=== PATIENT | female | born 1955 | race Caucasian/White ===

== ENCOUNTER 2017-04-17 15:06 | Emergency (ER) | payer OTHER ==
--- NOTE | 2017-04-17 15:41 | EDM.PDOC ---
ED HPI GENERAL MEDICAL PROBLEM - General Chief Complaint: General Stated Complaint: PASSING OUT Time Seen by Provider: 04/17/17 15:25 Source of Information: Reports: Patient, Family History Limitations: Reports: No Limitations - History of Present Illness INITIAL COMMENTS - FREE TEXT/NARRATIVE: 61-year-old female who has a history of chronic headaches, but is typically healthy was riding in the passenger seat of the car when she had a sudden onset of vertigo. She reached over and grabbed her because it was so intense. She also became nauseated and diaphoretic. It started to resolve but then she got an episode several minutes later. He brought her in to the hospital and she was hyperventilating, anxious, had paresthesias "all over" and felt unsteady walking and needed help. Other than a mild headache no other pain, no palpitations, no chest pain or abdominal pain. No recent trauma. No recent illnesses. She did just start on a "diet pill" within the last 1-2 weeks. She has not had lab or x-ray in "quite a while". She's also had some intermittent visual changes over the past several months, and also struggles with right TMJ. She's had an intermittent fullness in her left ear. Onset: Sudden (Within the last hour) Duration: Other (Still having some symptoms but improving) Severity: Moderate Associated Symptoms: Reports: Diaphoresis, Headaches, Malaise. 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 Denies: Fever, Chills HEENT: Reports: Other (See history of present illness) Respiratory: Denies: Shortness of Breath, Cough Cardiovascular: Denies: Chest Pain, Palpitations GI/Abdominal: Reports: Nausea. Denies: Abdominal Pain, Vomiting : Reports: No Symptoms Musculoskeletal: Reports: Other (Intermittent right TMJ symptoms) Skin: Reports: Pallor, Diaphoresis Neurological: Reports: Dizziness, Headache, Difficulty Walking Psychiatric: Reports: No Symptoms ED EXAM, GENERAL - Physical Exam Exam: See Below Exam Limited By: No Limitations General Appearance: Alert, No Apparent Distress, Anxious Eye Exam: Bilateral Eye: EOMI (I could not reproduce nystagmus), PERRL Ears: Normal TMs Head: Atraumatic Neck: Supple. No: Carotid Bruit Respiratory/Chest: No Respiratory Distress, Lungs Clear Cardiovascular: Regular Rate, Rhythm GI/Abdominal: Soft, Non-Tender Extremities: Normal Inspection. No: Pedal Edema Neurological: Alert, Oriented, No Motor/Sensory Deficits Psychiatric: Anxious, Other (Initially was hyperventilating but calmed down and markedly improved) Skin Exam: Warm, Dry Course - Vital Signs Last Recorded V/S: Last Vital Signs Temp 98.1 F 04/17/17 15:21 Pulse 95 04/17/17 15:21 Resp 20 04/17/17 15:21 BP 144/83 H 04/17/17 15:21 Pulse Ox 96 04/17/17 15:21 - Orders/Labs/Meds Orders: Active Orders 24 hr Category Date Time Status Head wo Cont [CT] Stat Exams 04/17/17 15:39 Taken Labs: Laboratory Tests 04/17/17 04/17/17 Range/Units 16:15 16:15 WBC 13.8 H (4.5-11.0) K/uL RBC 5.25 (3.30-5.50) M/uL Hgb 15.8 H (12.0-15.0) g/dL Hct 46.8 (36.0-48.0) % MCV 89 (80-98) fL MCH 30 (27-31) pg MCHC 34 (32-36) % Plt Count 413 H (150-400) K/uL Neut % (Auto) 75 H (36-66) % Lymph % (Auto) 19 L (24-44) % [place] % (Auto) 6 (2-6) % Eos % (Auto) 1 L (2-4) % Baso % (Auto) 0 (0-1) % Sodium 138 L (140-148) mmol/L Potassium 3.8 (3.6-5.2) mmol/L Chloride 103 (100-108) mmol/L Carbon Dioxide 23 (21-32) mmol/L Anion Gap 15.8 H (5.0-14.0) mmol/L BUN 11 (7-18) mg/dL Creatinine 0.9 (0.6-1.0) mg/dL Est Cr Clr Drug Dosing 51.92 mL/min Estimated GFR (MDRD) > 60 (>60) Glucose 131 H (74-106) mg/dL Calcium 9.5 (8.5-10.1) mg/dL Total Bilirubin 0.5 (0.2-1.0) mg/dL AST 20 (15-37) U/L ALT 30 (12-78) U/L Alkaline Phosphatase 133 H (46-116) U/L Total Protein 7.1 (6.4-8.2) g/dL Albumin 3.7 (3.4-5.0) g/dL Globulin 3.4 (2.3-3.5) g/dL Albumin/Globulin Ratio 1.1 L (1.2-2.2) - Re-Assessments/Exams Free Text/Narrative Re-Assessment/Exam: 04/17/17 16:10 Because of the intensity of the symptoms and the lack of nystagmus, a CT the head was obtained. We also marisa a CMP and CBC and continued observation. She was placed on cardiac monitoring and remained in a normal sinus rhythm throughout, she was slightly tachycardic initially but calmed down 04/17/17 16:[address] was completely normal. CBC and CMP were reassuring. Her symptoms almost completely resolved other than some slight visual disturbance which she will follow-up with optometry. Departure - Departure Time of Disposition: 17:22 Disposition: Home, Self-Care 01 Condition: Good Clinical Impression: Acute hyperventilation syndrome Acute vestibular neuritis Qualifiers: Laterality: unspecified laterality Qualified Code(s): H81.20 - Vestibular neuronitis, unspecified ear - Discharge Information Instructions: Hyperventilation Referrals: Deysi Weathers SPANISH LECTURER [Primary Care Provider] - Forms: ED Department Discharge Care Plan Goals: Increase activity as tolerated. Consider rechecking with optometry, [facility] in [place] may have an opening in the near future. Return in the next few days if symptoms are recurring or worsening. - My Orders Last 24 Hours: My Active Orders 04/17/17 15:39 Head wo Cont [CT] Stat - Assessment/Plan Last 24 Hours: My Active Orders 04/17/17 15:39 Head wo Cont [CT] Stat
== END 2017-04-17 17:22 | disposition home or self-care (01) ==
LOC: JP.ED 15:06
DX: H81.20 Vestibular neuronitis, unspecified ear (principal); F45.8 Other somatoform disorders; E78.00 Pure hypercholesterolemia, unspecified; Z79.899 Other long term (current) drug therapy; Z88.5 Allergy status to narcotic agent
CPT/HCPCS: 36415; 70450; 80053; 85025; 99284; 99284-25

== ENCOUNTER 2018-10-12 10:52 | Emergency (ER) | payer MEDICAID, OTHER ==
--- NOTE | 2018-10-12 11:48 | EDM.PDOC ---
ED HPI GENERAL MEDICAL PROBLEM - General Chief Complaint: Lower Extremity Injury/Pain Stated Complaint: BOTH YASMINE ARE SORE AND SWOLLEN Time Seen by Provider: 10/12/18 11:30 Source of Information: Reports: Patient, Old Records, RN History Limitations: Reports: No Limitations - History of Present Illness INITIAL COMMENTS - FREE TEXT/NARRATIVE: 63 yo female presents with some L knee pain and slight swelling since this past Tues. not associated with an injury. She has no hx of knee surgery. With rest the knee is slightly less swollen now than it was. She has not been to the clinic for this. It feels better if she walks with a locked L knee. 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) (none) Left Knee Pain Score (Numeric/FACES): 5 - Related Data Allergies Allergy/AdvReac Type Severity Reaction Status Date / Time codeine AdvReac Vomiting Verified 10/12/18 11:11 Home Meds: Home Meds Esomeprazole Magnesium [Nexium] 40 mg PO BEDTIME 04/17/17 [History] Dimenhydrinate [Dramamine] 50 mg PO DAILY PRN 10/12/18 [History] Montelukast [Singulair] 10 mg PO DAILY 10/12/18 [History] Turmeric Root Extract [Turmeric Curcumin] 1,000 mg PO DAILY 10/12/18 [History] Venlafaxine [Effexor] 37.5 mg PO DAILY 10/12/18 [History] Past Medical History Cardiovascular History: Reports: High Cholesterol Gastrointestinal History: Reports: Cholelithiasis 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: Musculoskeletal History: Reports: Arthritis, Back Pain, Chronic, Other (See Below) Other Musculoskeletal History: knee pain Psychiatric History: Reports: Depression - Infectious Disease History Infectious Disease History: Reports: Chicken Pox, Measles, Mumps - Past Surgical History GI Surgical History: Reports: Appendectomy, Cholecystectomy, Lysis of Adhesions Female Surgical History: Reports: Section, Hysterectomy Musculoskeletal Surgical History: Reports: Shoulder Surgery Social & Family History - Tobacco Use Smoking Status *Q: Current Every Day Smoker Years of Tobacco use: 40 Packs/Tins Daily: 0.5 Used Tobacco, but Quit: No Second Hand Smoke Exposure: Yes - Caffeine Use Caffeine Use: Reports: Coffee - Recreational Drug Use Recreational Drug Use: No Review of Systems - Review of Systems Review Of Systems: See Below Constitutional: Reports: No Symptoms Musculoskeletal: Reports: Joint Pain (L knee), Joint Swelling (L knee) Skin: Reports: No Symptoms Neurological: Reports: No Symptoms ED EXAM, GENERAL - Physical Exam Exam: See Below Exam Limited By: No Limitations General Appearance: Alert, WD/WN, No Apparent Distress Eye Exam: Bilateral Eye: Normal Inspection Ears: Normal External Exam, Normal Canal, Hearing Grossly Normal, Normal TMs Ear Exam: Bilateral Ear: Auricle Normal, Canal Normal Nose: Normal Inspection, No Blood Extremities: Normal Inspection, No Pedal Edema, Limited Range of Motion (Able to extend fully, able to flex to about 100 degrees or not quite fully due to tightness. Medial jt line tenderness noted on exam. No ligamentous laxity.). No : Pedal Edema Neurological: Alert, Oriented, CN II-XII Intact, Normal Cognition, No Motor/ Sensory Deficits Psychiatric: Normal Affect, Normal Mood Skin Exam: Warm, Dry, Intact, Normal Color, No Rash Course - Vital Signs Last Recorded V/S: Last Vital Signs Temp 37.0 C 10/12/18 11:22 Pulse 90 10/12/18 11:22 Resp 16 10/12/18 11:22 BP 148/75 H 10/12/18 11:22 Pulse Ox 97 10/12/18 11:22 Departure - Departure Time of Disposition: 11:47 Disposition: Home, Self-Care 01 Condition: Good Clinical Impression: Medial meniscus tear Qualifiers: Tear current or old: current Encounter type: initial encounter Meniscus tear of knee type: unspecified type Laterality: left Qualified Code(s): S83.242A - Other tear of medial meniscus, current injury, left knee, initial encounter - Discharge Information *PRESCRIPTION DRUG MONITORING PROGRAM REVIEWED*: No *COPY OF PRESCRIPTION DRUG MONITORING REPORT IN PATIENT JUSTINE: No Instructions: Meniscus Tear Referrals: PCP,None [Primary Care Provider] - Additional Instructions: Take ibuprofen or acetaminophen as needed. Rest that knee by walking with a fully extended knee. Recheck in the clinic if you are not improving by one month , sooner if you are getting worse.
== END 2018-10-12 11:58 | disposition home or self-care (01) ==
LOC: JP.ED 10:52
DX: S83.242A Other tear of medial meniscus, current injury, left knee, initial encounter (principal); E78.00 Pure hypercholesterolemia, unspecified; F17.210 Nicotine dependence, cigarettes, uncomplicated; F32.9 Major depressive disorder, single episode, unspecified; Z88.5 Allergy status to narcotic agent; Z79.899 Other long term (current) drug therapy; X58.XXXA Exposure to other specified factors, initial encounter
CPT/HCPCS: 99283

== ENCOUNTER 2018-10-21 15:21 | Emergency (ER) | payer MEDICAID ==
--- NOTE | 2018-10-21 15:59 | EDM.PDOC ---
ED HPI GENERAL MEDICAL PROBLEM - General Chief Complaint: Lower Extremity Injury/Pain Stated Complaint: LEFT LEG PAIN, SWELLING Time Seen by Provider: 10/21/18 15:45 Source of Information: Reports: Patient, Old Records, RN History Limitations: Reports: No Limitations - History of Present Illness INITIAL COMMENTS - FREE TEXT/NARRATIVE: 63 yo female was here recently for L knee pain that was felt to possibly be from a meniscal tear. She is now moving and so has been more active on the knee and doing more stairs. Today her L calf is painful and swollen so comes in for evaluation. Her primary is in [place](likes her), but doesn't like [place] and was worried that she would be sent for testing to [place] so instead came to the ER here. Denies chest pain or SOB. The R calf is not painful. 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) - Related Data Allergies Allergy/AdvReac Type Severity Reaction Status Date / Time codeine AdvReac Vomiting Verified 10/21/18 15:40 Home Meds: Home Meds Esomeprazole Magnesium [Nexium] 40 mg PO BEDTIME 04/17/17 [History] Dimenhydrinate [Dramamine] 50 mg PO DAILY PRN 10/12/18 [History] Montelukast [Singulair] 10 mg PO DAILY 10/12/18 [History] Venlafaxine [Effexor] 37.5 mg PO DAILY 10/12/18 [History] Cyclobenzaprine [Flexeril] 10/21/18 [History] Past Medical History Cardiovascular History: Reports: High Cholesterol Gastrointestinal History: Reports: Cholelithiasis 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: Musculoskeletal History: Reports: Arthritis, Back Pain, Chronic, Other (See Below) Other Musculoskeletal History: knee pain Psychiatric History: Reports: Depression - Infectious Disease History Infectious Disease History: Reports: Chicken Pox, Measles, Mumps - Past Surgical History GI Surgical History: Reports: Appendectomy, Cholecystectomy, Lysis of Adhesions Female Surgical History: Reports: Section, Hysterectomy Musculoskeletal Surgical History: Reports: Shoulder Surgery Social & Family History - Tobacco Use Smoking Status *Q: Current Every Day Smoker Years of Tobacco use: 30 Packs/Tins Daily: 0.2 - Caffeine Use Caffeine Use: Reports: Coffee Review of Systems - Review of Systems Review Of Systems: See Below Constitutional: Reports: No Symptoms Respiratory: Reports: No Symptoms. Denies: Shortness of Breath, Pleuritic Chest Pain, Cough, Sputum, Hemoptysis Cardiovascular: Reports: No Symptoms Musculoskeletal: Reports: Leg Pain (L calf pain and swelling) Skin: Reports: Erythema (of both medial ankles) Neurological: Reports: No Symptoms Psychiatric: Reports: No Symptoms ED EXAM, GENERAL - Physical Exam Exam: See Below Exam Limited By: No Limitations General Appearance: Alert, WD/WN, No Apparent Distress Eye Exam: Bilateral Eye: Normal Inspection Ears: Hearing Grossly Normal Ear Exam: Bilateral Ear: Auricle Normal, Canal Normal Nose: Normal Inspection, No Blood Throat/Mouth: Normal Lips, Normal Voice, No Airway Compromise Head: Atraumatic, Normocephalic Neck: Normal Inspection Respiratory/Chest: No Respiratory Distress, Lungs Clear, Normal Breath Sounds, No Accessory Muscle Use Cardiovascular: Regular Rate, Rhythm, No Edema Back Exam: Normal Inspection Extremities: Pedal Edema (L calf larger in diameter than the R. ), Leg Pain (L calf tenderness with palpation. ), Redness (of medial ankles bilat., non-tender. ). No: Increased Warmth Neurological: Alert, Oriented, CN II-XII Intact, Normal Cognition, No Motor/ Sensory Deficits Psychiatric: Normal Affect, Normal Mood Skin Exam: Warm, Dry, Intact, No Rash, Erythema (medial ankles bilat.) Lymphatic: No Adenopathy Course - Vital Signs Last Recorded V/S: Last Vital Signs Temp 36.6 C 10/21/18 15:46 Pulse 109 H 10/21/18 15:46 Resp 16 10/21/18 15:46 BP 130/84 10/21/18 15:46 Pulse Ox 97 10/21/18 15:46 - Orders/Labs/Meds Labs: Laboratory Tests 10/21/18 Range/Units 16:03 D-Dimer, Quantitative 1790 H (0.0-400.0) ng/mL - Radiology Interpretation Free Text/Narrative:: Venous doppler L calf- - Re-Assessments/Exams Free Text/Narrative Re-Assessment/Exam: 10/21/18 17:25 decided abruptly that they had waited long enough. Our US tech was here doing a procedure on a child with abdominal pain and Crystal would have been next , they were made aware of this but elected to sign out AMA anyway. Departure - Departure Time of Disposition: 17:10 Disposition: Against Medical Advice 07 Condition: Fair Clinical Impression: Pain of left calf, Elevated d-dimer - Discharge Information *PRESCRIPTION DRUG MONITORING PROGRAM REVIEWED*: No *COPY OF PRESCRIPTION DRUG MONITORING REPORT IN PATIENT JUSTINE: No Referrals: PCP,None [Primary Care Provider] - Forms: ED Department Discharge
== END 2018-10-21 17:10 | disposition left against medical advice (07) ==
LOC: JP.ED 15:21
DX: M79.662 Pain in left lower leg (principal); R79.89 Other specified abnormal findings of blood chemistry; F32.9 Major depressive disorder, single episode, unspecified; F17.210 Nicotine dependence, cigarettes, uncomplicated; Z79.899 Other long term (current) drug therapy; Z88.5 Allergy status to narcotic agent
CPT/HCPCS: 36415; 85379; 99283-25

== ENCOUNTER 2023-04-20 11:33 | Emergency (ER) | payer MEDICARE ==
[2023-04-20 12:27] LABS: BASOPHILS ABSOLUTE AUTO 0.03 K/uL (0.00-0.10); BASOPHILS PERCENT AUTO 0.2 % (0.1-1.3); HEMATOCRIT 45.8 % (34.3-46.0); HEMOGLOBIN 15.4 g/dL (11.2-15.5); IMMATURE GRAN ABSOLUTE AUTO 0.07 K/uL (0.00-0.23); IMMATURE GRAN PERCENT AUTO 0.4 % (0.0-0.7); LYMPHOCYTES ABSOLUTE AUTO 1.84 K/uL (0.8-3.3); LYMPHOCYTES PERCENT AUTO 10.8 % (11.4-47.7); MEAN CORPUSCULAR HEMOGLOBIN 30.7 pg (31.6-35.5); MEAN CORPUSCULAR HGB CONC 33.6 g/dL (31.6-35.5); MEAN CORPUSCULAR VOLUME 91.2 fL (81.4-99.0); MONOCYTES ABSOLUTE AUTO 1.21 K/uL (0.20-0.90); MONOCYTES PERCENT AUTO 7.1 % (3.3-12.6); NEUTROPHILS ABSOLUTE AUTO 13.94 K/uL (1.0-7.6); NEUTROPHILS PERCENT AUTO 81.5 % (40.0-78.1); PLATELET COUNT,PLT 461 K/uL (130-375); RED BLOOD CELL COUNT 5.02 M/uL (3.77-5.24); WHITE BLOOD CELL COUNT,WBC 17.1 K/uL (3.2-11.0)
[2023-04-20] MEDS ORDERED: Ondansetron 4 MG Tab.DIS PO ONE (12:34)
[2023-04-20 12:48] LABS: A/G RATIO 1.2 (1.2-2.2); ALANINE AMINOTRANSFERASE,ALT 16 U/L (12-78); ALBUMIN 3.9 g/dL (3.4-5.0); ALKALINE PHOSPHATASE 75 U/L (46-116); ANION GAP 10.2 mmol/L (5.0-14.0); ASPARTATE AMNIOTRANSFERASE,AST 15 U/L (15-37); BILIRUBIN TOTAL 0.5 mg/dL (0.2-1.0); BLOOD UREA NITROGEN,BUN 12 mg/dL (7-18); C-REACTIVE PROTEIN 0.15 mg/dL (0.0-0.3); CALCIUM 8.9 mg/dL (8.5-10.1); CARBON DIOXIDE,CO2 28 mmol/L (21-32); CHLORIDE,CL 103 mmol/L (100-108); CREATININE 0.7 mg/dL (0.6-1.0); EST CRCL DRUG DOSING (CG) 61.68 mL/min; ESTIMATED GFR 95 mL/min (>60); GLUCOSE RANDOM 105 mg/dL (74-106); POTASSIUM,K 3.9 mmol/L (3.6-5.2); PROTEIN TOTAL,TP 7.2 g/dL (6.4-8.2); SODIUM,NA 141 mmol/L (140-148)
[2023-04-20 13:36] LABS: CORONAVIRUS COVID-19 NAA NEGATIVE (NEGATIVE); INFLUENZA A NAA NEGATIVE (NEGATIVE); INFLUENZA B NAA NEGATIVE (NEGATIVE); RESPIRATORY SYNCYTIAL VIR NAA NEGATIVE (NEGATIVE)
[2023-04-20 13:38] LABS: APPEARANCE,URINE SLIGHTLY CLOUDY (CLEAR); BILIRUBIN,URINE SMALL (NEGATIVE); COLOR,URINE YELLOW (YELLOW); GLUCOSE,URINE 250 mg/dL (NEGATIVE); KETONES,URINE 80 mg/dL (NEGATIVE); LEUKOCYTE ESTERASE,URINE NEGATIVE (NEGATIVE); NITRITE,URINE NEGATIVE (NEGATIVE); OCCULT BLOOD,URINE NEGATIVE (NEGATIVE); PH,URINE 5.5 (5.0-8.0); PROTEIN,URINE 100 mg/dL (NEGATIVE); UROBILINOGEN,URINE 0.2 EU/dL (0.2-1.0)
[2023-04-20 13:44] LABS: BACTERIA,URINE FEW; EPITHELIAL CELLS,URINE MODERATE; RBC,URINE 0-5 (0-5); WBC,URINE 0-5 (0-5)
[2023-04-20 13:45] LABS: AMORPHOUS SEDIMENT,URINE MODERATE; MUCUS,URINE MANY
== END 2023-04-20 14:14 | disposition home or self-care (01) ==
LOC: JP.ED 11:33
DX: D72.829 Elevated white blood cell count, unspecified (principal); F41.9 Anxiety disorder, unspecified; R11.2 Nausea with vomiting, unspecified; E78.00 Pure hypercholesterolemia, unspecified; Z20.822 Contact with and (suspected) exposure to COVID-19; Z88.5 Allergy status to narcotic agent; Z79.899 Other long term (current) drug therapy
CPT/HCPCS: 0241U; 36415; 70450; 71045; 80053; 80307; 81001; 82947; 83605; 84145; 85025; 86140; 93005; 99285; Q0162